=== PATIENT | male | born 1960 | race Caucasian/White ===

== ENCOUNTER → 2020-09-27 13:25 | Outpatient (CLI) | payer OTHER, SELFPAY ==
--- NOTE | 2020-09-27 14:06 | DI.RAD.S_ITS ---
PROCEDURE: XR KUB INDICATIONS: Kidney stones TECHNIQUE: One view of the abdomen acquired. COMPARISON: [facility], CR, KUB, 09/23/2012, 16:15. [facility], CR, KUB, 06/02/2013, 9:02. [facility], CR, XR ABDOMEN 1 VIEW, 05/07/2018, 13:20. FINDINGS: Surgical changes and devices: None. Bowel: Bowel gas pattern is normal. Soft tissues: Multiple renal calculi in kidneys bilaterally. Calcific densities in pelvis could be fluid bolus or ureteral stones Visualized solid organ contours appear normal in size. Bones: No suspicious bony lesions. IMPRESSION: Multiple renal calculi bilaterally. If there are urinary obstructive symptoms, CT KUB or ultrasound may be helpful. Dictated by: Vik Langford M.D. on 09/27/2020 at 17:24 Approved by: Vik Langford M.D. on 09/27/2020 at 17:26
== END ==
PROVIDERS: PCP Family Medicine; Referring Provider Specialist; Visit Provider Specialist
DX: N20.0 Calculus of kidney (principal)
CPT/HCPCS: 74018